=== PATIENT | female | born 1975 | race Caucasian/White ===

== ENCOUNTER 2018-04-27 14:19 | Emergency (ER) | payer SELFPAY ==
[~2018-04-27] VITALS: Ht 165.1 cm; Wt 85.7 kg
[~2018-04-27 14:19] MED LIST: IBUP-1780 PO; IBUP-2055 PO; LEVO500T2 PO; NAPR-1071 PO
[2018-04-27] MEDS ORDERED: cbd oil (14:35)
[2018-04-27] MEDS ORDERED: HYDR-4226 PO (14:48)
--- NOTE | 2018-04-27 14:48 | ED Upper Extremity ---
General Chief Complaint: Upper Extremity Stated Complaint: LEFT SHOULDER INJ Nursing Triage Note: pt presents to ed with complaints of l shoulder pain x 2 weeks after slipping and trying to catch herself. pt reports she cant raise her l arm above her head. Nursing Sepsis Screen: No Definite Risk Source: patient Exam Limitations: no limitations History of Present Illness Date Seen by Provider: Apr 27, 2018 Time Seen by Provider: 14:44 Initial Comments To ER with reports of left shoulder and arm pain. This began about 2 weeks ago after she slipped and fell on the ice, landed on her tailbone but during the fall she reached behind her with her left arm extending it and with a jolting mechanism she landed. She initially had some pain between her shoulder blades and between her shoulder and the base of her neck, that pain progressed down the left arm as a sensation of pins and needles, pain over the deltoid with arm movement. She states the left arm feels a bit weaker than the right. She denies any neck pain now. 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 Onset: just prior to arrival Severity: moderate Pain/Injury Location: left shoulder, left arm Method of Injury: fell Modifying Factors: Worse With Movement Allergies and Home Medications Allergies Uncoded Allergies: pain medication (Adverse Reaction, Unknown, 12/21/16) Patient Home Medication List Home Medication List Reviewed: Yes Review of Systems Constitutional: see HPI EENTM: see HPI Respiratory: no symptoms reported Cardiovascular: no symptoms reported Genitourinary: no symptoms reported Musculoskeletal: see HPI Skin: no symptoms reported Past Lszlrqt-Saipeh-Shfauo Hx Patient Social History Alcohol Use: Occasionally Uses Recreational Drug Use: Yes Drug of Choice: thc Smoking Status: Never a Smoker Recent Foreign Travel: No Contact w/Someone Who Travel: No Recent Infectious Disease Expo: No Immunizations Up To Date Tetanus Booster (TDap): Less than 5yrs PED Vaccines UTD: Yes Past Medical History Surgeries: Yes Tubal Ligation Respiratory: No Currently Using CPAP: No Currently Using BIPAP: No Cardiac: No ( - INDUCED HTN) Neurological: No Reproductive Disorders: No Female 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 oz. 85.231261cx; 28.29 BMI Method:Stated General Appearance: WD/WN, no apparent distress HEENT: PERRL/EOMI, normal ENT inspection Neck: No tender lateral, No tender midline Respiratory: no respiratory distress, no accessory muscle use Gastrointestinal: normal bowel sounds, non tender Shoulder: normal inspection, limited ROM (due to pain arm abduction is very limited) Elbow/Forearm: normal inspection, non-tender Wrist: Yes normal inspection, Yes non-tender Hand: normal inspection, non-tender Neurologic/Psychiatric: alert, normal mood/affect, oriented x 3 Skin: normal color, warm/dry Progress/Results/Core Measures Results/Orders My Orders Orders - KARI FARIAS APRN Shoulder, Left, 3 Views (04/27/18 14:39) Vital Signs/I&O 04/27/18 14:28 Pulse 78 Resp 20 B/P (MAP) 140/103 (115) Pulse Ox 98 Blood Pressure Mean: 115 Departure Communication (Admissions) She states that she has to go to work, cannot have a work note and cannot wear a sling and work, she needs the income and will not wear the sling at work. Impression Primary Impression: Injury of left brachial plexus Qualified Codes: S14.3XXA - Injury of brachial plexus, initial encounter Disposition: 01 HOME, SELF-CARE Condition: Stable Departure-Patient Inst. Decision time for Depature: 14:46 Referrals: ELO TSANG MD NO,LOCAL PHYSICIAN (PCP) Primary Care Physician JUANCARLOS JANE MD, ROBERT F DO ZAFUTA, MICHAEL P MD Patient Instructions: Shoulder Pain (DC) Add. Discharge Instructions: 1. Return to ER for any concerns 2. Follow-up with one of the orthopedists listed next week. Call today or tomorrow to make an one increasing. Wear the sling as much as possible when you are able to 3. All discharge instructions reviewed with patient and/or family. Voiced understanding. Scripts Hydrocodone/Acetaminophen ([place] 5-325 Tablet) 1 Each Tablet 1 EACH PO Q6H PRN for PAIN-MODERATE MDD 10, #14 TAB Prov: KARI FARIAS APRN 04/27/18 KARI FARIAS APRN Apr 27, 2018 14:48
[2018-04-27 15:09] VITALS: BP 140/97
--- NOTE | 2018-04-27 15:18 | Diagnostic Imaging Report ---
INDICATION: Left shoulder pain. COMPARISON: None. EXAMINATION: Three views of the left shoulder were obtained. FINDINGS: No fracture or dislocation. Articular surfaces are normal. No osseous lesion is seen. IMPRESSION: Negative left shoulder. Dictated by: Dictated on workstation # [id number]
== END 2018-04-27 15:09 | disposition home or self-care (01) ==
LOC: EDUNIT# 14:19 → ER 14:20
DX: S14.3XXA Injury of brachial plexus, initial encounter (principal); Z88.8 Allergy status to other drugs, medicaments and biological substances; Z98.51 Tubal ligation status; Z87.448 Personal history of other diseases of urinary system; W00.0XXA Fall on same level due to ice and snow, initial encounter
CPT/HCPCS: 73030

== ENCOUNTER 2019-02-12 20:10 | Emergency (ER) | payer SELFPAY ==
[~2019-02-12] VITALS: Ht 165 cm; Wt 86.4 kg
[~2019-02-12 20:10] MED LIST changes: +HYDR-4226 PO; +cbd oil
--- NOTE | 2019-02-12 21:21 | ED Cough/URI ---
General Chief Complaint: Cough/Cold/Flu Symptoms Stated Complaint: COUGH/CONGESTION Nursing Triage Note: Pt ambulated to triage. Chief complaint of "cold for 7 days". Pt reports that she has had uncontrolled cough for the last few days. Pt denies fever for last 5 days. Sepsis Screen: No Definite Risk Source: patient Exam Limitations: no limitations History of Present Illness Date Seen by Provider: Feb 12, 2019 Time Seen by Provider: 21:01 Timing/Duration: week Severity/Quality: moderate, productive cough Prior Episodes/Possible Cause: occasional episodes Modifying Factors: Worse With Activity; Improves With Rest Associated Symptoms: cough, fever/chills, muscle aches, nasal congestion, nasal drainage, shortness of breath, sore throat Allergies and Home Medications Allergies Uncoded Allergies: pain medication (Adverse Reaction, Unknown, 12/21/16) Home Medications Hydrocodone/Acetaminophen 1 Each Tablet, 1 EACH PO Q6H PRN for PAIN-MODERATE Prescribed by: KARI FARIAS on 04/27/18 1448 Patient Home Medication List Home Medication List Reviewed: Yes Review of Systems Review of Systems Constitutional: see HPI; No chills; fever EENTM: nose congestion, throat pain Respiratory: cough; No wheezing Cardiovascular: no symptoms reported Gastrointestinal: No nausea, No vomiting Genitourinary: no symptoms reported Musculoskeletal: muscle pain; No muscle weakness Past Nfunbhp-Fxrlxq-Jlrzfk Hx Past Med/Social Hx: Reviewed Nursing Past Med/Soc Hx Patient Social History Alcohol Use: Denies Use Recreational Drug Use: Yes Drug of Choice: thc Smoking Status: Never a Smoker 2nd Hand Smoke Exposure: No Recent Foreign Travel: No Contact w/Someone Who Travel: No Recent Infectious Disease Expo: No Immunizations Up To Date Tetanus Booster (TDap): Less than 5yrs PED Vaccines UTD: Yes Past Medical History Surgeries: Yes Tubal Ligation Respiratory: No Currently Using CPAP: No Currently Using BIPAP: No Cardiac: No ( - INDUCED HTN) Neurological: No Reproductive Disorders: No 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 oz. 85.438645wx; 31.00 BMI Method:Stated General Appearance: WD/WN, no apparent distress HEENT: PERRL/EOMI, pharyngeal erythema Neck: full range of motion, supple Respiratory: no accessory muscle use, other (coarse sounds with cough) Cardiovascular: regular rate, rhythm, no murmur Gastrointestinal: non tender, soft Extremities: non-tender, normal inspection Neurologic/Psychiatric: alert, oriented x 3 Skin: normal color, warm/dry Progress/Results/Core Measures Suspected Sepsis Recent Fever Within 48 Hours: No Infection Criteria Present: Suspected New Infection New/Unexplained Altered Menta: No Sepsis Screen: No Definite Risk SIRS Temperature: Pulse: 72 Respiratory Rate: 20 Blood Pressure 132 /88 Mean: 103 Results/Orders Micro Results Microbiology 02/12/19 Influenza Types A,B Antigen (LAUREN) - Final, Complete My Orders Orders - KARLIE VILLEGAS MD Chest Pa/Lat (2 View) (02/12/19 21:05) Influenza A And B Antigens (02/12/19 21:05) Dexamethasone Injection (Decadron Inject (02/12/19 22:15) Rx-Albuterol Inhaler (Rx-Proair) (02/12/19 22:03) Vital Signs/I&O 02/12/19 20:32 Temp 36.9 Pulse 72 Resp 20 B/P (MAP) 132/88 (103) Pulse Ox 99 O2 Delivery Room Air Capillary Refill : Less Than 3 Seconds Blood Pressure Mean: 103 Progress Note : Progress Note Seen and evaluated. 2 view chest x-ray and influenza screen ordered. Monitor patient. 2201: Chest x-ray negative and influenza screen negative. Decadron 10 mg IM ordered. We will give albuterol MDI inhaler to go to help with bronchospasms. Discharged home with return precautions. Patient verbalize understanding instructions and agreement with plan. Diagnostic Imaging Diagonstic Imaging: Xray Plain Films/CT/US/NM/MRI: chest Comments [facility] [place], [place] NAME: JAXON LENZ [facility] REC#: [id number] PT STATUS: REG ER : 1975 PHYSICIAN: KARLIE VILLEGAS MD ADMIT DATE: 02/12/19/ER Signed Date of Exam:02/12/19 CHEST PA/LAT (2 VIEW) INDICATION: Cough COMPARISON: None. FINDINGS: Frontal and lateral views the chest demonstrate clear lungs bilaterally. The heart size is normal. There is no pneumothorax. Osseous structures are normal. IMPRESSION: No acute findings. Normal chest. Dictated by: Dictated on workstation # [id number] Dict: 02/12/192120 Trans: 02/12/192121 [facility] [id number] Interpreted by: DOTTY SIMPSON Electronically signed by: DOTTY SIMPSON 02/12/192121 Departure Impression Primary Impression: Upper respiratory infection Qualified Codes: J06.9 - Acute upper respiratory infection, unspecified Disposition: HOME, SELF-CARE Condition: Stable Departure-Patient Inst. Decision time for Depature: 21:44 Referrals: NO,LOCAL PHYSICIAN (PCP/Family) Primary Care Physician Patient Instructions: Viral Upper Respiratory Infection, Adult (DC) Add. Discharge Instructions: All discharge instructions reviewed with patient and/or family. Voiced understanding. You may take Tylenol/acetaminophen 1000 mg every 8 hours as needed for fever or pain. Do not take Tylenol/acetaminophen if you are taking uahx-ses-pckazix cold medicine as they both have acetaminophen in them. You may take ibuprofen 800 mg every 8 hours as needed for fever or pain. You may use Afrin nasal spray or the generic, 12 hour relief, 2 sprays to each nostril twice daily for 3 days only and then stop. Do not use more than 3 days. Follow-up with your Dr. in a few days for recheck. Drink plenty of fluids. Return for worse pain, fever, vomiting, weakness, breathing problems or other concerns as needed. KARLIE VILLEGAS MD Feb 12, 2019 21:21
[2019-02-12] MEDS ORDERED: RX-ALBUTEROL INHALER (PROAIR) 8.5 GM IH STA (22:03)
[2019-02-12 22:07] VITALS: BP 132/88
[2019-02-12] MEDS ORDERED: DEXAMETHASONE 10 MG/ML (DECADRON) 1 ML VIAL IM ONE (22:15)
== END 2019-02-12 22:15 | disposition home or self-care (01) ==
LOC: EDUNIT# 20:10 → ER 20:11
DX: J06.9 Acute upper respiratory infection, unspecified (principal); Z98.51 Tubal ligation status
CPT/HCPCS: 71046; 87804; 96372

== ENCOUNTER 2019-10-12 15:13 | Emergency (ER) | payer SELFPAY ==
[~2019-10-12] VITALS: Ht 165 cm; Wt 92.5 kg
[~2019-10-12 15:13] MED LIST changes: -IBUP-2055 PO; +IBUP-2473 PO
--- NOTE | 2019-10-12 15:44 | ED Upper Extremity ---
General Chief Complaint: Laceration Stated Complaint: FINGER LACERATION Nursing Triage Note: was taking the trash out of her house when she pushed the trash bag down in the trash can and cut her middle finger on L hand, thinks it was a piece of glass that she cut her finger on Nursing Sepsis Screen: No Definite Risk Source: patient Exam Limitations: no limitations History of Present Illness Date Seen by Provider: Oct 12, 2019 Time Seen by Provider: 15:43 Initial Comments she cut the pad of the distal left pointer finger while taking out the trash just prior to arrival. Onset: just prior to arrival Pain/Injury Location: left 3rd finger Method of Injury: direct blow Modifying Factors: Worse With Movement Allergies and Home Medications Allergies Uncoded Allergies: pain medication (Adverse Reaction, Unknown, 12/21/16) Home Medications Hydrocodone/Acetaminophen 1 Each Tablet, 1 EACH PO Q6H PRN for PAIN-MODERATE Prescribed by: KARI FARIAS on 04/27/18 1448 Patient Home Medication List Home Medication List Reviewed: Yes Review of Systems Constitutional: see HPI EENTM: see HPI Respiratory: no symptoms reported Genitourinary: no symptoms reported Musculoskeletal: no symptoms reported Skin: see HPI Psychiatric/Neurological: No Symptoms Reported Past Thkilxn-Yyycqn-Zztyvh Hx Patient Social History Alcohol Use: Denies Use Recreational Drug Use: Yes Drug of Choice: marijuana 2nd Hand Smoke Exposure: No Recent Foreign Travel: No Contact w/Someone Who Travel: No Recent Infectious Disease Expo: No Recent Hopitalizations: No Immunizations Up To Date Tetanus Booster (TDap): More than 5yrs PED Vaccines UTD: Yes Seasonal Allergies Seasonal Allergies: No Past Medical History Surgeries: Yes Tubal Ligation Respiratory: No Currently Using CPAP: No Currently Using BIPAP: No Cardiac: No ( - INDUCED HTN) Neurological: No Reproductive Disorders: No Female 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 oz. 85.809577dh; 33.00 BMI Method:Stated General Appearance: WD/WN, no apparent distress Respiratory: no respiratory distress, no accessory muscle use Shoulder: normal inspection, non-tender Elbow/Forearm: normal inspection, non-tender Hand: Left, laceration (1 cm laceration with The subcutaneous tissue to the pad of the distal phalanx left finger. No active bleeding. Scribbles correcting/saline solution then closed with skinaffix. ) Neurologic/Tendon: normal sensation, normal motor functions Neurologic/Psychiatric: alert, normal mood/affect, oriented x 3 Skin: normal color, warm/dry Progress/Results/Core Measures Results/Orders Vital Signs/I&O 10/12/19 15:23 Temp 36.9 Pulse 89 Resp 18 B/P (MAP) 133/93 (106) Pulse Ox 97 O2 Delivery Room Air Blood Pressure Mean: 106 Departure Impression Primary Impression: Finger laceration Qualified Codes: S61.213A - Laceration without foreign body of left middle finger without damage to nail, initial encounter Disposition: HOME, SELF-CARE Condition: Stable Departure-Patient Inst. Decision time for Depature: 15:48 Referrals: NO,LOCAL PHYSICIAN (PCP/Family) Primary Care Physician Patient Instructions: Laceration Repair With Glue (DC) Add. Discharge Instructions: 1. Return to ER for any concerns 2. Follow-up with your doctor next week 3. Allow the glue to follow up on its own in 3-4 days. All discharge instructions reviewed with patient and/or family. Voiced understanding. KARI FARIAS TRIM SETTER HELPER Oct 12, 2019 15:44
[2019-10-12] MEDS ORDERED: TETANUS,DIPTH,PERTUSS P/F (BOOSTRIX) 0.5 ML VIAL IM ONE (16:00)
[2019-10-12 16:38] VITALS: BP 133/90
== END 2019-10-12 16:03 | disposition home or self-care (01) ==
LOC: EDUNIT# 15:13 → ER 15:14
DX: S61.211A Laceration without foreign body of left index finger without damage to nail, initial encounter (principal); Z88.6 Allergy status to analgesic agent; W26.8XXA Contact with other sharp object(s), not elsewhere classified, initial encounter
CPT/HCPCS: 99282

== ENCOUNTER 2020-05-24 19:28 | Emergency (ER) | payer SELFPAY ==
[~2020-05-24] VITALS: Ht 165.1 cm; Wt 86.1 kg
[2020-05-24] MEDS ORDERED: AMOX-358 PO (20:26)
[2020-05-24] MEDS ORDERED: ONDA4TAB11 PO (20:26)
--- NOTE | 2020-05-24 20:26 | ED EENT ---
History of Present Illness General Chief Complaint: Dental Problems/Pain Stated Complaint: LEFT JAW SWOLLEN, STARTING TO TURN COLORS Source: patient Exam Limitations: no limitations History of Present Illness Date Seen by Provider: May 24, 2020 Time Seen by Provider: 20:11 Initial Comments Patient to the ER by private conveyance with chief complaint that today she woke up with swelling and pain in her left lower jaw. She has had this ongoing for t he past several months. She had to be hospitalized on Levaquin for 5 days for the same abscess of her tooth. She had tooth come off but the roots are still in place. She was following with a dentist at the dental clinic and they put her on several courses of outpatient antibiotics each time telling her it was not time to extract the roots. She says that the knot at the base of her teeth never went away however she has not had any pointing discharge or anything she could drain. She says she was lost to follow-up because she got tired of being told that it was not ready to be extracted. No fevers. She is having some nausea. She took a tramadol from a family member but it did not help her pain. She does not like hydrocodone because it makes her nauseated. Allergies and Home Medications Allergies Uncoded Allergies: pain medication (Adverse Reaction, Unknown, 12/21/16) Home Medications Amoxicillin/Potassium Clav 1 Each Tablet, 1 EACH PO BID Prescribed by: EMILY HASSAN on 05/24/202025 Hydrocodone/Acetaminophen 1 Each Tablet, 1 EACH PO Q6H PRN for PAIN-MODERATE Prescribed by: KARI FARIAS on 04/27/18 1448 Ondansetron 4 Mg Tab.rapdis, 4 MG PO Q6H PRN for NAUSEA/VOMITING Prescribed by: EMILY HASSAN on 05/24/202025 Patient Home Medication List Home Medication List Reviewed: Yes Review of Systems Review of Systems Constitutional: No chills, No diaphoresis Eyes: Denies Blindness, Denies Blurred Vision Ears: Denies Dizziness, Denies Pain Nose: denies clots, denies congestion Mouth: see HPI, pain, swelling Throat: denies pain, denies swelling, denies neck stiffness, denies hoarse, denies painful swallowing, denies difficulty with fluids Respiratory: No cough, No short of breath All Other Systems Reviewed Negative Unless Noted: Yes Past Vgophkc-Fmvijf-Usydry Hx Patient Social History Alcohol Use: Denies Use Drug of Choice: marijuana Smoking Status: Never a Smoker 2nd Hand Smoke Exposure: No Recent Hopitalizations: No Immunizations Up To Date Tetanus Booster (TDap): More than 5yrs PED Vaccines UTD: Yes Seasonal Allergies Seasonal Allergies: No Past Medical History Surgeries: Yes Tubal Ligation Respiratory: No Currently Using CPAP: No Currently Using BIPAP: No Cardiac: No ( - INDUCED HTN) Neurological: No Reproductive Disorders: No Female Reproductive Disorders: 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 oz. 85.183991yq; 33.00 BMI Method:Stated General Appearance: WD/WN, mild distress Eyes: bilateral eye normal inspection, bilateral eye PERRL, bilateral eye EOMI Ears: bilateral ear auricle normal, bilateral ear canal normal, bilateral ear TM normal Nose: normal inspection, discharge Mouth/Throat: mandibular swelling (Left 3 cm swelling at the angle of the jaw) Neck: non-tender, full range of motion, supple, normal inspection Cardiovascular: normal peripheral pulses, regular rate, rhythm Respiratory: no respiratory distress, no accessory muscle use Neurologic/Psychiatric: alert, oriented x 3 Procedures/Interventions Progress Left-sided infraalveolar nerve injection. Using an admixture of 50-50 of 1% lidocaine and half percent Marcaine we put in 1-1/2 cc at the site of the infra alveolar nerve on the medial side of the mandible. Using a 25-gauge 1-1/2 inch needle we ascertain the usual landmarks injected the site after aspirating to assure we were not in a blood vessel. No epinephrine was used. Patient tolerated procedure well. Progress/Results/Core Measures Results/Orders My Orders Orders - EMILY HASSAN Lidocaine 2% Viscous 15 Ml (Xylocaine Vi (05/24/20 20:30) Bupivacaine 0.5% Injection (Sensorcaine (05/24/20 20:30) Lidocaine 1% Inj 20 Ml (Xylocaine 1% Inj (05/24/20 20:30) Ceftriaxone For Im Use (Rocephin For Im (05/24/20 20:30) Rx-Ondansetron Po (Rx-Zofran Po) (05/24/20 20:27) Medications Given in ED Current Medications Medications Dose Ordered Sig/Kellee Route Start Time Stop Time Status Last Admin Dose Admin Bupivacaine HCl 30 ml ONCE ONCE INJ 05/24/20 20:30 05/24/20 20:31 DC 05/24/20 21:15 30 ML Ceftriaxone Sodium 1,000 mg ONCE ONCE IM 05/24/20 20:30 05/24/20 20:31 DC 05/24/20 21:14 1,000 MG Lidocaine HCl 5 ml ONCE ONCE PO 05/24/20 20:30 05/24/20 20:31 DC 05/24/20 21:13 5 ML Lidocaine HCl 20 ml ONCE ONCE INJ 05/24/20 20:30 05/24/20 20:31 DC 05/24/20 21:14 20 ML Progress Progress Note : Time: 20:22 Progress Note Rocephin IM 1 g, Augmentin 10 days. Plan to do a alveolar nerve block and refer her to Dr. Bonilla, [facility]. Return precautions were discussed. Departure Impression Primary Impression: Dental abscess Disposition: HOME, SELF-CARE Condition: Stable Departure-Patient Inst. Decision time for Depature: 20:30 Referrals: RAMIREZ BONILLA DDS NO,LOCAL PHYSICIAN (PCP) Primary Care Physician Patient Instructions: Tooth Abscess (DC) Add. Discharge Instructions: Be sure to give you some numbness for the next 6 to 8 hours. If your pain is unbearable you can use 5 mL of viscous lidocaine on a piece of gauze directly over the tooth packet on every 4 hours as necessary. Tylenol 1000 mg every 8 hours as necessary for pain. Ibuprofen 800 mg every 8 hours as necessary for pain. Heat may be helpful for pain. Topical gel such as Orajel may also be helpful for pain. Augmentin 1 tablet with food twice a day for the next 10 days. cupola charger insulation a bottle of probiotics and take 1 capsule twice a day with food to prevent side effects from the antibiotics. Zofran/ondansetron 1 tablet under the tongue every 6 hours as necessary for nausea and/or vomiting Call and follow-up with the dentist. Promptly return to the ER if you are NOT able to stay hydrated, swallow or have difficulty breathing. All discharge instructions reviewed with patient and/or family. Voiced understanding. Scripts Amoxicillin/Potassium Clav (Augmentin 875-125 Tablet) 1 Each Tablet 1 EACH PO BID, #20 TAB 0 Refills Prov: EMILY HASSAN 05/24/20 Ondansetron (Ondansetron Odt) 4 Mg Tab.rapdis 4 MG PO Q6H PRN for NAUSEA/VOMITING, #15 TAB 0 Refills Prov: EMILY HASSAN 05/24/20 Copy Copies To 1: RAMIREZ BONILLA DDS EMILY HASSAN May 24, 2020 20:26
[2020-05-24] MEDS ORDERED: RX-ONDANSETRON 4 MG ODT (ZOFRAN) PPK #4 PO STA (20:27)
[2020-05-24] MEDS ORDERED: cefTRIAXone 1,000 MG/2.86 ml vial (IM ONLY) IM ONE (20:30)
[2020-05-24] MEDS ORDERED: LIDOCAINE 2% VISCOUS 15 ML UDC PO ONE (20:30)
[2020-05-24] MEDS ORDERED: LIDOCAINE 1% INJ 20 ML 20 ML VIAL INJ ONE (20:30)
[2020-05-24] MEDS ORDERED: BUPIVACAINE 0.5% 30 ML (SENSORCAINE) VIAL INJ ONE (20:30)
[2020-05-24 21:38] VITALS: BP 154/94
== END 2020-05-24 21:35 | disposition home or self-care (01) ==
LOC: EDUNIT# 19:28 → ER 19:33
DX: K04.7 Periapical abscess without sinus (principal); Z88.6 Allergy status to analgesic agent
CPT/HCPCS: 99284

== ENCOUNTER 2020-07-24 17:39 | Emergency (ER) | payer SELFPAY ==
[~2020-07-24] VITALS: Ht 165.1 cm; Wt 86.3 kg
[~2020-07-24 17:39] MED LIST changes: +AMOX-358 PO; +ONDA4TAB11 PO
[2020-07-24] MEDS ORDERED: ONDANSETRON 4 MG/2 ML (SDV) Z0FRAN IVP ONE (18:45)
[2020-07-24] MEDS ORDERED: KETOROLAC 30 MG/ML VIAL IVP ONE (18:45)
[2020-07-24] MEDS ORDERED: fentaNYL INJ 100 MCG/2 ML AMP IVP ONE ×2 (18:45→20:00)
[2020-07-24] MEDS ORDERED: LIDOCAINE 1% INJ 20 ML 20 ML VIAL INJ ONE (18:45)
[2020-07-24] MEDS ORDERED: CLINDAMYCIN 900 MG/50 ML IVPB 50 ML IV ONE (18:45)
[2020-07-24 19:00] LABS: BASOPHILS # (AUTO) 0.1 10^3/uL (0.0-0.1); BASOPHILS % (AUTO) 1 % (0-10); EOSINOPHILS # (AUTO) 0.1 10^3/uL (0.0-0.3); EOSINOPHILS % (AUTO) 1 % (0-10); HEMATOCRIT 39 % (35-52); HEMOGLOBIN 12.9 g/dL (11.5-16.0); LYMPHOCYTES # (AUTO) 1.8 10^3/uL (1.0-4.0); LYMPHOCYTES % (AUTO) 18 % (12-44); MEAN CORPUSCULAR HEMOGLOBIN 28 pg (25-34); MEAN CORPUSCULAR HGB CONC 33 g/dL (32-36); MEAN CORPUSCULAR VOLUME 84 fL (80-99); MEAN PLATELET VOLUME 11.8 fL (9.0-12.2); MONOCYTES # (AUTO) 0.8 10^3/uL (0.0-1.0); MONOCYTES % (AUTO) 8 % (0-12); NEUTROPHILS # (AUTO) 7.1 10^3/uL (1.8-7.8); NEUTROPHILS % (AUTO) 72 % (42-75); PLATELET COUNT 213 10^3/uL (130-400); WHITE BLOOD COUNT 9.8 10^3/uL (4.3-11.0)
[2020-07-24 19:08] LABS: CHLORIDE 101 MMOL/L (98-107); POTASSIUM 3.6 MMOL/L (3.6-5.0); SODIUM 138 MMOL/L (135-145)
[2020-07-24 19:09] LABS: CALCIUM 9.2 MG/DL (8.5-10.1)
[2020-07-24 19:10] LABS: GLUCOSE 92 MG/DL (70-105)
[2020-07-24 19:11] LABS: CARBON DIOXIDE 24 MMOL/L (21-32)
[2020-07-24 19:14] LABS: BUN/CREATININE RATIO 12; CREATININE SERUM 0.76 MG/DL (0.60-1.30); GFR ESTIMATED > 60
[2020-07-24] MEDS ORDERED: oxyCODONE/APAP 5/325MG (PERCOCET 5) TABLET PO ONE (20:00)
--- NOTE | 2020-07-24 20:28 | ED EENT ---
History of Present Illness General Chief Complaint: Dental Problems/Pain Stated Complaint: ABCESS Nursing Triage Note: AMB TO ROOM REPORTS HAS HAD DENTAL PAIN WITH ABSCESS FOR 6 YEARS HAS BEEN ON NUMEROUS ANTIBIOTICS FOR NOTHING HELPS. Source: patient Exam Limitations: no limitations History of Present Illness Date Seen by Provider: Jul 24, 2020 Time Seen by Provider: 18:30 Initial Comments This 45-year-old woman presents to the emergency room with complaints of rapidly worsening left mandibular dental abscess. She has been struggling with infection associated with this eroded tooth for about 6 years. She states that she has attempted to get extractions but has been declined each time she has attempted to because the infection has not been under good enough control to perform the extraction. She has recently been on another round of antibiotics that did not resolve the infection. She believes that antibiotic was Augmentin or amoxicillin. She has chills but denies fever. There is no drainage from the abscess. She is experiencing significant pain and has significant swelling around the left mandible. Allergies and Home Medications Allergies Uncoded Allergies: pain medication (Adverse Reaction, Unknown, 12/21/16) Home Medications Amoxicillin/Potassium Clav 1 Each Tablet, 1 EACH PO BID Prescribed by: EMILY HASSAN on 05/24/202025 Clindamycin HCl 300 Mg Capsule, 300 MG PO QID Prescribed by: MOOKIE COATS on 07/24/202030 Hydrocodone/Acetaminophen 1 Each Tablet, 1 EACH PO Q6H PRN for PAIN-MODERATE Prescribed by: KARI FARIAS on 04/27/18 1448 Hydrocodone/Acetaminophen 1 Each Tablet, 1 TAB PO Q4H PRN for PAIN-MODERATE (5- 7) Prescribed by: MOOKIE COATS on 07/24/202031 Ondansetron 4 Mg Tab.rapdis, 4 MG PO Q6H PRN for NAUSEA/VOMITING Prescribed by: EMILY HASSAN on 05/24/202025 Ondansetron 4 Mg Tab.rapdis, 4 MG PO Q4H PRN for NAUSEA/VOMITING Prescribed by: MOOKIE COATS on 07/24/202030 Patient Home Medication List Home Medication List Reviewed: Yes Review of Systems Review of Systems Constitutional: see HPI, chills Eyes: No Symptoms Reported Ears: No Symptoms Reported Nose: no symptoms reported Mouth: see HPI Throat: no symptoms reported Respiratory: no symptoms reported Cardiovascular: no symptoms reported Gastrointestinal: no symptoms reported Musculoskeletal: no symptoms reported Skin: no symptoms reported Neurological: No Symptoms Reported Hematologic/Lymphatic: No Symptoms Reported Immunological/Allergic: no symptoms reported Past Gixzhqh-Nvessa-Xfanox Hx Past Med/Social Hx: Reviewed Nursing Past Med/Soc Hx Patient Social History Alcohol Use: Occasionally Uses Drug of Choice: marijuana Smoking Status: Never a Smoker 2nd Hand Smoke Exposure: No Recent Infectious Disease Expo: No Recent Hopitalizations: No Immunizations Up To Date Tetanus Booster (TDap): More than 5yrs PED Vaccines UTD: Yes Seasonal Allergies Seasonal Allergies: No Past Medical History Surgeries: Yes Tubal Ligation Respiratory: No Currently Using CPAP: No Currently Using BIPAP: No Cardiac: No ( - INDUCED HTN) Neurological: No : No Reproductive Disorders: No Female Reproductive Disorders: Denies [facility] [facility] [facility] History: Tubal Ligation Sexually Transmitted Disease: No HIV/AIDS: No Genitourinary: Yes Kidney Infection Gastrointestinal: No Musculoskeletal: No Endocrine: No HEENT: Yes (Recurrent dental abscesses) Cancer: No Psychosocial: No Integumentary: No Blood Disorders: No Adverse Reaction/Blood Tranf: No Family Medical History Kidney disease 19 FATHER Physical Exam Vital Signs Vital Signs - First Documented 07/24/20 18:26 Temp 36.3 Pulse 87 Resp 18 B/P (MAP) 140/104 (116) Pulse Ox 98 O2 Delivery Room Air Height, Weight, BMI Height: 5'5.00" Weight: 189lbs. oz. 85.144905pk; 31.00 BMI Method:Stated General Appearance: WD/WN, mild distress Eyes: bilateral eye normal inspection Nose: normal inspection Mouth/Throat: pharynx normal, other (Large indurated fullness lateral to a severely decayed left lower molar with associated tenderness) Neck: non-tender, normal inspection Cardiovascular: regular rate, rhythm, no edema, no murmur Respiratory: lungs clear, normal breath sounds, no respiratory distress Neurologic/Psychiatric: policy director II-XII nml as tested, no motor/sensory deficits, alert, normal mood/affect, oriented x 3 Skin: normal color, warm/dry Procedures/Interventions Progress Dental abscess aspiration: Topical anesthetic was applied with LET on gauze. Local anesthesia was then provided with lidocaine injection. An attempt was made at aspirating the abscess with an 18-gauge needle. Only a few drops of pus were aspirated with blood. This was sent for culture. There was still significant fullness in the area of abscess. An attempt was made at incision in the same area. There was bleeding but no pus was released. A second attempt at aspiration was made without success. Patient was pretreated with fentanyl and Toradol. Progress/Results/Core Measures Results/Orders Lab Results Laboratory Tests Test 07/24/20 18:54 Range/Units White Blood Count 9.8 4.3-11.0 10^3/uL Red Blood Count 4.60 3.80-5.11 10^6/uL Hemoglobin 12.9 11.5-16.0 g/dL Hematocrit 39 35-52 % Mean Corpuscular Volume 84 80-99 fL Mean Corpuscular Hemoglobin 28 25-34 pg Mean Corpuscular Hemoglobin Concent 33 32-36 g/dL Red Cell Distribution Width 13.2 10.0-14.5 % Platelet Count 213 130-400 10^3/uL Mean Platelet Volume 11.8 9.0-12.2 fL Immature Granulocyte % (Auto) 0 % Neutrophils (%) (Auto) 72 42-75 % Lymphocytes (%) (Auto) 18 12-44 % Monocytes (%) (Auto) 8 0-12 % Eosinophils (%) (Auto) 1 0-10 % Basophils (%) (Auto) 1 0-10 % Neutrophils # (Auto) 7.1 1.8-7.8 10^3/uL Lymphocytes # (Auto) 1.8 1.0-4.0 10^3/uL Monocytes # (Auto) 0.8 0.0-1.0 10^3/uL Eosinophils # (Auto) 0.1 0.0-0.3 10^3/uL Basophils # (Auto) 0.1 0.0-0.1 10^3/uL Immature Granulocyte # (Auto) 0.0 0.0-0.1 10^3/uL Sodium Level 138 135-145 MMOL/L Potassium Level 3.6 3.6-5.0 MMOL/L Chloride Level 101 98-107 MMOL/L Carbon Dioxide Level 24 21-32 MMOL/L Anion Gap 13 5-14 MMOL/L Blood Urea Nitrogen 9 7-18 MG/DL Creatinine 0.76 0.60-1.30 MG/DL Estimat Glomerular Filtration Rate > 60 BUN/Creatinine Ratio 12 Glucose Level 92 70-105 MG/DL Calcium Level 9.2 8.5-10.1 MG/DL C-Reactive Protein High Sensitivity 1.58 H 0.00-0.50 MG/DL My Orders Orders - MOOKIE TEJADA MD Lidocaine 1% Inj 20 Ml (Xylocaine 1% Inj (07/24/20 18:45) Basic Metabolic Panel (07/24/20 18:36) Cbc With Automated Diff (07/24/20 18:36) Hs C Reactive Protein (07/24/20 18:36) Ondansetron Injection (Zofran Injectio (07/24/20 18:45) Fentanyl Inj (Sublimaze Injection) (07/24/20 18:45) Ketorolac Injection (Toradol Injection) (07/24/20 18:45) Clindamycin 900 Mg/50 Ml Ivpb (Cleocin P (07/24/20 18:45) Oxycodone/Apap 5/325mg Tablet (Percocet (07/24/20 20:00) Fentanyl Inj (Sublimaze Injection) (07/24/20 20:00) Wound Culture (07/24/20 20:28) Medications Given in ED Vital Signs/I&O 07/25/20 00:00 Intake Total 50 ml Balance 50 ml Blood Pressure Mean: 116 Progress Progress Note : Progress Note Patient was treated with Toradol, fentanyl, and Zofran. Attempt was made at aspirating and incising and draining the abscess. Only few drops of pus were aspirated. They were sent for culture. Clindamycin 900 mg IV was administered. Patient was further treated with fentanyl and Percocet for pain. I contacted Dr. Doe who would like to see the patient in clinic tomorrow. Departure Impression Primary Impression: Dental abscess Disposition: HOME, SELF-CARE Condition: Improved Departure-Patient Inst. Referrals: RAMIREZ DOE DDS NO,LOCAL PHYSICIAN (PCP) Primary Care Physician Patient Instructions: Tooth Abscess (DC) Add. Discharge Instructions: Contact Dr. Doe's office first thing in the morning. He would like to see you tomorrow. Use ibuprofen up to 600 mg every 6 hours as needed for primary pain control. Use hydrocodone for pain not controlled by ibuprofen. Complete your antibiotics as prescribed. [place] her teeth gently twice daily and rinse with an antiseptic mouthwash if tolerated. Call with questions or concerns. Return to the ER if you have worsening symptoms. All discharge instructions reviewed with patient and/or family. Voiced understanding. Scripts Ondansetron (Ondansetron Odt) 4 Mg Tab.rapdis 4 MG PO Q4H PRN for NAUSEA/VOMITING, #10 TAB Prov: MOOKIE TEJADA MD 07/24/20 Hydrocodone/Acetaminophen (Hydrocodone-Acetamin 5-325 mg) 1 Each Tablet 1 TAB PO Q4H PRN for PAIN-MODERATE (5-7), #10 TAB Prov: MOOKIE TEJADA MD 07/24/20 Clindamycin HCl (Clindamycin HCl) 300 Mg Capsule 300 MG PO QID, #40 CAP Prov: MOOKIE TEJADA MD 07/24/20 Copy Copies To 1: RAMIREZ DOE DDMOOKIE FOY MD Jul 24, 2020 20:28
[2020-07-24] MEDS ORDERED: CLIN300C12 PO (20:31)
[2020-07-24] MEDS ORDERED: ACHD5005 PO (20:31)
[2020-07-24] MEDS ORDERED: ONDA4TAB11 PO (20:31)
[2020-07-24 20:40] VITALS: BP 140/104
== END 2020-07-24 20:42 | disposition home or self-care (01) ==
LOC: EDUNIT# 17:39 → ER 17:40
DX: K04.7 Periapical abscess without sinus (principal); Z88.6 Allergy status to analgesic agent
CPT/HCPCS: 36415; 80048; 85025; 86141; 87070; 87077; 87205